=== PATIENT | female | born 1980 | race Caucasian/White ===

== ENCOUNTER 2017-06-07 18:10 | Emergency (ER) | payer MEDICAID ==
[~2017-06-07] VITALS: Ht 149.9 cm; Wt 55.0 kg
[2017-06-07 18:16] VITALS: Ht 149.9 cm; Wt 55.0 kg
[2017-06-07 18:58] LABS: BASOPHILS % 0.5 % (0.0-2.0); EOSINOPHILS # 0.1 10^3/ul (0.0-0.5); EOSINOPHILS % 1.6 % (0.0-7.0); HEMATOCRIT 40.3 % (37.0-47.0); HEMOGLOBIN 13.6 g/dl (12.0-16.0); LYMPHOCYTES # 3.2 10^3/ul (0.8-2.9); MEAN CORPUSCULAR HEMOGLOBIN 27.7 pg (29.0-33.0); MEAN CORPUSCULAR HGB CONC 33.7 g/dl (32.0-37.0); MEAN CORPUSCULAR VOLUME 82.1 fl (82.0-101.0); MEAN PLATELET VOLUME 10.9 fl (7.4-10.4); MONOCYTE # 0.6 10^3/ul (0.3-0.9); MONOCYTES % 7.2 % (0.0-11.0); NEUTROPHIL # 4.4 10^3/ul (1.6-7.5); NEUTROPHILS % 52.5 % (39.0-77.0); PLATELET COUNT 217 10^3/UL (140-415); RED BLOOD COUNT 4.91 10^6/ul (4.20-5.40); RED CELL DISTRIBUTION WIDTH 14.6 % (11.5-14.5); WHITE BLOOD COUNT 8.3 10^3/ul (4.8-10.8)
--- NOTE | 2017-06-07 19:00 | ERD ---
ER Documentation Chief Complaint Date/Time DATE: 06/07/17 TIME: 18:50 Chief Complaint LEFT FLANK PAIN X 3 DAYS; DENIES N/V , DENIES DIARHEA/CONSTIPATION HPI 36-year-old female presents here in emergency department for complaints of left upper quadrant and left flank pain that started 3 days ago, describes the pain as sharp pain, 6/10 scale, is worse upon taking a deep breath. Patient denies any nausea vomiting diarrhea or constipation. Patient denies any fever or chills. Patient denies hematuria or dysuria. Patient did not take any medications to help with symptoms. ROS All systems reviewed and are negative except as per history of present illness. Medications Home Meds Reported Medications [none] Unknown Strength No Conflict Check 06/07/17 Allergies Allergies: Coded Allergies: No Known Allergy (Unverified , 06/07/17) PMhx/Soc Medical and Surgical Hx: pt denies Medical Hx History of Surgery: Yes (c/s) Anesthesia Reaction: No Hx Neurological Disorder: No Hx Respiratory Disorders: No Hx Cardiac Disorders: No Hx Psychiatric Problems: No Hx Miscellaneous Medical Probl: No Hx Alcohol Use: No Hx Substance Use: No Hx Tobacco Use: No Smoking Status: Never smoker FmHx Family History: No coronary disease, No diabetes, No other Physical Exam Vitals Vital Signs Date Time Temp Pulse Resp B/P Pulse Ox O2 Delivery O2 Flow Rate FiO2 06/07/17 18:16 98.8 85 19 125/76 99 Physical Exam GENERAL: The patient is well developed and appropriate for usual state of health, in no apparent distress. CHEST: Clear to auscultation bilaterally. There are no rales, wheezes or rhonchi. HEART: Regular rate and rhythm. No murmurs, clicks, rubs or gallops. No S3 or S4. ABDOMEN: Soft, mild tenderness on palpation on the left upper quadrant.. Good bowel sounds. No rebound or guarding. No gross peritonitis. No gross organomegaly or masses. No Khan sign or McBurney point tenderness. BACK: No midline or flank tenderness. Tenderness on palpation on the left upper back area EXTREMITIES: Equal pulses bilaterally. There is no peripheral clubbing, cyanosis or edema. No focal swelling or erythema. Full range of motion. Grossly neurovascularly intact. NEURO: Alert and oriented. Cranial nerves 2-12 intact. Motor strength in all 4 extremities with 5/5 strength. Sensation grossly intact. Normal speech and gait. SKIN: There is no apparent rash or petechia. The skin is warm and dry. HEMATOLOGIC AND LYMPHATIC: There is no evidence of excessive bruising or lymphedema. No gross cervical, axillary, or inguinal lymphadenopathy. Result Diagram: 06/07/17184406/07/171844 Results 24 hrs Laboratory Tests Test 06/07/17 18:45 White Blood Count 8.310^3/ul Red Blood Count 4.9110^6/ul Hemoglobin 13.6g/dl Hematocrit 40.3% Mean Corpuscular Volume 82.1fl Mean Corpuscular Hemoglobin 27.7pg Mean Corpuscular Hemoglobin Concent 33.7g/dl Red Cell Distribution Width 14.6% Platelet Count 48594^3/UL Mean Platelet Volume 10.9fl Neutrophils % 52.5% Lymphocytes % 38.0% Monocytes % 7.2% Eosinophils % 1.6% Basophils % 0.5% Nucleated Red Blood Cells % 0.0/100WBC Neutrophils # 4.410^3/ul Lymphocytes # 3.210^3/ul Monocytes # 0.610^3/ul Eosinophils # 0.110^3/ul Basophils # 0.010^3/ul Nucleated Red Blood Cells # 0.010^3/ul Urine Color COLORLESS Urine Clarity CLEAR Urine pH 6.0 Urine Specific [place] 1.003 Urine Ketones NEGATIVEmg/dL Urine Nitrite NEGATIVEmg/dL Urine Bilirubin NEGATIVEmg/dL Urine Urobilinogen NEGATIVEmg/dL Urine Leukocyte Esterase NEGATIVELeu/ul Urine Microscopic RBC 1/HPF Urine Microscopic WBC 3/HPF Urine Bacteria MODERATE/HPF Urine Hemoglobin 1+mg/dL Urine Glucose NEGATIVEmg/dL Urine Total Protein NEGATIVEmg/dl Sodium Level 143mmol/L Potassium Level 3.8mmol/L Chloride Level 101mmol/L Carbon Dioxide Level 26mmol/L Anion Gap 20 Blood Urea Nitrogen 15mg/dl Creatinine 0.82mg/dl Glucose Level 102mg/dl Calcium Level 9.9mg/dl Total Bilirubin 0.2mg/dl Direct Bilirubin 0.00mg/dl Indirect Bilirubin 0.2mg/dl Aspartate Amino Transf (AST/SGOT) 20IU/L Alanine Aminotransferase (ALT/SGPT) 31IU/L Alkaline Phosphatase 66IU/L Total Protein 9.3g/dl Albumin 5.1g/dl Globulin 4.20g/dl Albumin/Globulin Ratio 1.21 Lipase 200U/L PROCEDURE: CT Abdomen and Pelvis without contrast. CLINICAL INDICATION: Abdominal pain. TECHNIQUE: A CT scan of the abdomen and pelvis was performed without intravenous contrast. Coronal and sagittal reformatted images were generated. Images were reviewed on a high-resolution PACS workstation. CTDIvol: 6.04 mGy. DLP: 197.63 mGy-cm. One or more of the following dose reduction techniques were used: - Automated exposure control. - Adjustment of the mA and/or kV according to patient size. - Use of iterative reconstruction technique. COMPARISON: None. FINDINGS: The lung bases are clear. Evaluation of the abdominal and pelvic viscera is limited by the lack of oral and intravenous contrast. The liver is unremarkable. The gallbladder is normal in appearance. The common bile duct is not dilated. The spleen is not enlarged. No pancreatic lesion is identified and there is no pancreatic ductal dilatation. The adrenal glands are unremarkable. The kidneys are normal in size. There is no perinephric fat stranding. No hydronephrosis is seen. No urinary stone is identified. The small and large bowel are normal in caliber. The descending colon is underdistended, limiting evaluation for colonic wall thickening. The appendix is mildly enlarged (9 mm diameter) but no significant periappendiceal inflammatory changes are noted. The appendix lies medial to the right external iliac vessels. The urinary bladder is unremarkable. The pelvic organs are within normal limits. There is trace pelvic ascites. No lymphadenopathy is identified. No pneumoperitoneum is seen. There are no arterial calcifications. No suspicious osseous lesion is idenitified. IMPRESSION: 1. Equivocal appearance of the appendix. The appendix is mildly enlarged (9 mm diameter) but no significant periappendiceal inflammatory changes are noted. If there is concern appendicitis, close clinical follow-up is recommended. 2. Limited evaluation for descending colon wall thickening due to colonic underdistension. 3. Trace pelvic ascites, nonspecific. RPTAT: HTAR .Bassam Lyons MD, MD Date Time Electronically viewed and signed by .Bassam Lyons MD, on 06/07/2017 20:25 .R/ CC: DARNELL RUIZ NP Procedures/MDM Medical Decision Making: Patient symptoms of left upper quadrant abdominal pain left upper back pain nonspecific at this time, can be musculoskeletal pain, upper left quadrant pain most likely can be from gastritis. No right lower quadrant tenderness noted. No leukocytosis. No bandemia. No urinary tract infection. There is +1 hemoglobin in the urine, can be passed stone. There is low suspicion for abdominal emergencies at this time. Patients abdominal exam is normal at this time. Patients radiology exam does not show any abdominal emergencies at this time. There is low suspicion for appendicitis, cholecystitis , abdominal aortic aneurysms or peritonitis at this time. There is low suspicion for sepsis. Patient appears well and is hemodynamically stable. Disposition: Home. Condition: Stable Prescription tramadol, omeprazole, Mylanta Instructions: Patient is advised to take medications as prescribed. Patient is advised to rest, increase fluid intake and do brat diet for next 1-2 days and progress as tolerated. Patient is advised that if symptoms are worse, severe abdominal pain, uncontrolled vomiting, high fever, severe flank pain, worst signs and symptoms, to return to the emergency department immediately. Otherwise, patient can follow up with primary care doctor in 5-7 days. Departure Diagnosis: Primary Impression: Abdominal pain Abdominal location: left upper quadrant Qualified Code: R10.12 - Left upper quadrant pain Additional Impression: Flank pain Condition: Stable Patient Instructions: Abdominal Pain, Flank Pain, Uncertain Cause Additional Instructions: Patient is advised to take medications as prescribed. Patient is advised to rest, increase fluid intake and do brat diet for next 1-2 days and progress as tolerated. Patient is advised that if symptoms are worse, severe abdominal pain , uncontrolled vomiting, high fever, severe flank pain, worst signs and symptoms , to return to the emergency department immediately. Otherwise, patient can follow up with primary care doctor in 5-7 days. DARNELL RUIZ NP Jun 07, 2017 19:00
[2017-06-07 19:03] LABS: ADD UMIC YES; UR ASCORBIC ACID NEGATIVE (NEGATIVE); UR BACTERIA MODERATE /HPF (NONE SEEN); UR BILIRUBIN (Dip) NEGATIVE (NEGATIVE); UR BLOOD (Dip) 1+ mg/dL (NEGATIVE); UR CLARITY CLEAR (CLEAR); UR COLOR COLORLESS (YELLOW); UR GLUCOSE (Dip) NEGATIVE (NEGATIVE); UR KETONES (Dip) NEGATIVE (NEGATIVE); UR LEUKOCYTE ESTERASE (Dip) NEGATIVE Leu/ul (NEGATIVE); UR NITRITE (Dip) NEGATIVE (NEGATIVE); UR RBC 1 /HPF (0-5); UR SPECIFIC GRAVITY (Dip) 1.003 (1.003-1.030); UR TOTAL PROTEIN (Dip) NEGATIVE (NEGATIVE); UR UROBILINOGEN (Dip) NEGATIVE (NEGATIVE)
[2017-06-07 19:23] LABS: ALBUMIN 5.1 g/dl (3.3-4.9); ALBUMIN/GLOBULIN RATIO 1.21; BILIRUBIN,INDIRECT 0.2 mg/dl (0-1.1); BILIRUBIN,TOTAL 0.2 mg/dl (0.2-1.3); CALCIUM 9.9 mg/dl (8.4-10.2); CREATININE 0.82 mg/dl (0.44-1.00); POTASSIUM 3.8 mmol/L (3.5-5.1); TOTAL PROTEIN 9.3 g/dl (6.1-8.1)
--- NOTE | 2017-06-07 20:25 | RADRPT ---
PROCEDURE: CT Abdomen and Pelvis without contrast. CLINICAL INDICATION: Abdominal pain. TECHNIQUE: A CT scan of the abdomen and pelvis was performed without intravenous contrast. Capellan l and sagittal reformatted images were generated. Images were reviewed on a high-resolution PACS wor kstation. CTDIvol: 6.04 mGy. DLP: 197.63 mGy-cm. One or more of the following dose reduction techniques were used: - Automated exposure control. - Adjustment of the mA and/or kV according to patient size. - Use of iterative reconstruction technique. COMPARISON: None. FINDINGS: The lung bases are clear. Evaluation of the abdominal and pelvic viscera is limited by the lack of oral and intravenous contra st. The liver is unremarkable. The gallbladder is normal in appearance. The common bile duct is not dila obed. The spleen is not enlarged. No pancreatic lesion is identified and there is no pancreatic ducta l dilatation. The adrenal glands are unremarkable. The kidneys are normal in size. There is no perinephric fat stranding. No hydronephrosis is seen. No urinary stone is identified. The small and large bowel are normal in caliber. The descending colon is underdistended, limiting ev aluation for colonic wall thickening. The appendix is mildly enlarged (9 mm diameter) but no signif icant periappendiceal inflammatory changes are noted. The appendix lies medial to the right external iliac vessels. The urinary bladder is unremarkable. The pelvic organs are within normal limits. There is trace pelv ic ascites. No lymphadenopathy is identified. No pneumoperitoneum is seen. There are no arterial calcifications. No suspicious osseous lesion is idenitified. IMPRESSION: 1. Equivocal appearance of the appendix. The appendix is mildly enlarged (9 mm diameter) but no sig nificant periappendiceal inflammatory changes are noted. If there is concern appendicitis, close cli nical follow-up is recommended. 2. Limited evaluation for descending colon wall thickening due to colonic underdistension. 3. Trace pelvic ascites, nonspecific. RPTAT: HTAR .Bassam Lyons MD, Date Time Electronically viewed and signed by .Bassam Lyons MD, on 06/07/2017 20:25 .R/
[2017-06-07] MEDS ORDERED: TRAM50TA2 PO (20:34)
[2017-06-07] MEDS ORDERED: MAG-19 PO (20:34)
[2017-06-07] MEDS ORDERED: OMEP20CA16 PO (20:34)
[2017-06-07 20:49] VITALS: BP 123/76; PULSE 83; RESP 19; TEMP 98.8
== END 2017-06-07 20:49 | disposition home or self-care (01) ==
LOC: FTE 18:10
DX: R10.12 Left upper quadrant pain (principal)
CPT/HCPCS: 36415; 74176; 80053; 81001; 83690; 85025; Z7502